=== PATIENT | male | born 2000 | race Caucasian/White ===

== ENCOUNTER 2020-05-24 06:06 | Emergency (ER) | payer OTHER ==
[2020-05-24 06:16] VITALS: BP 129/70; PULSE 64; TEMP 98.2; BMI 20.7
[2020-05-24] MEDS ORDERED: KETOROLAC TROMETHAMINE 60 MG/2 ML VIAL ONE (06:33)
[2020-05-24] MEDS ORDERED: KETOROLAC TROMETHAMINE 60 MG/2 ML VIAL IM ONE (06:33)
--- NOTE | 2020-05-24 06:36 | PDOC ---
History of Present Illness - General Chief Complaint: Toothache Stated Complaint: TOOTH/JAW PAIN Time Seen by Provider: 05/24/20 06:30 History Source: Patient Exam Limitations: No Limitations - History of Present Illness Initial Comments: 05/24/20 06:33 This is a 20-year-old male who comes in complaining of pain in the area of his right upper molars. Patient has an appointment with a dentist for 9 AM this morning. Patient denies any fevers or chills. Patient denies any other complaints. Allergies: as per nursing notes Past Medical History: none Social history: Lives with family. No smoking. No alcohol. No illicit drugs. Surgical history: None General: No fevers or chills, no weakness, no weight loss HEENT: No change in vision. No sore throat,. No ear pain, tooth pain as per HPI CardioVascular: no chest discomfort. No shortness of breath Respiratory:No cough, or wheezing. Gastrointestinal: no nausea, vomiting, diarrhea or constipation, No rectal bleeding Genitourinary: No dysuria, hematuria, or frequency Musculoskeletal: No joint or muscle pain or swelling Neurologic: No headache, vertigo, dizziness or loss of consciousness Psychiatric: nor depression Skin: No rashes or easy bruising Endocrine: no increased thirst or abnormal weight change Allergic: no skin or latex allergy All other systems reviewed and normal GENERAL: The patient is awake, alert, and fully oriented, in no acute distress. HEENT:Head is normal with no signs of trauma. Teeth: There is some tenderness and palpation of the right upper jaw in the area of the wisdom teeth. The wisdom teeth are not in yet and the tenderness is over that area. There is no swelling or erythema or evidence of an abscess or infection at this time. Eyes: Pupils equal, round and reactive to light, Ears, and Throat are normal. Neck is supple. No Lymphadenopathy. EXTREMITIES:atraumatic, Normal range of motion, no edema. NEUROLOGICAL: Normal speech, normal gait. PSYCH: Normal mood, normal affect. SKIN: Warm, Dry, normal turgor, no rashes or lesions noted. Assessment and plan: This is a 20-year-old male with tooth pain that is most likely secondary to a wisdom tooth that is attempting to come in. Patient is seeing a dentist at 9 AM. Patient given Toradol and discharged Past History - Medical History Allergies/Adverse Reactions: Allergies Allergy/AdvReac Type Severity Reaction Status Date / Time No Known Allergies Allergy Unverified 11/07/11 18:01 Home Medications: Ambulatory Orders NK [No Known Home Medication] 05/24/20 COPD: No - Psycho-Social/Smoking History Smoking Status: No Smoking History: Current some day smoker Number of Cigarettes Smoked Daily: 0 Information on smoking cessation initiated: Yes *Physical Exam - Vital Signs Last Vital Signs Temp Pulse Resp BP Pulse Ox 98.2 F 64 16 129/70 100 05/24/20 06:09 05/24/20 06:09 05/24/20 06:09 05/24/20 06:09 05/24/20 06:09 Discharge - Discharge Information Problems reviewed: Yes Clinical Impression/Diagnosis: Dentalgia Condition: Stable Disposition: HOME - Admission No - Follow up/Referral - Patient Discharge Instructions Patient Printed Discharge Instructions: DI for Dental Pain Additional Instructions: You are given a shot of Toradol which lasts about 8 hours if after that you need something more take Aleve 2 tablets twice a day with food do not take on an empty stomach Keep your appointment with your dentist Return to the emergency department immediately with ANY new, persistent or worsening symptoms. Continue any medications as previously prescribed by your physician. You should follow up with your primary doctor as soon as possible regarding today's emergency department visit. . Please make sure your doctor reviews the results of your emergency evaluation. Thank you for coming to the Emergency Department today for your care. It was a pleasure to see you today. Please note that your evaluation is INCOMPLETE until you follow-up with your doctor. - Post Discharge Activity
== END 2020-05-24 06:39 | disposition home or self-care (01) ==
LOC: FER 06:06
PROC: 3E0233Z Introduction of Anti-inflammatory into Muscle, Percutaneous Approach (ICD-10-PCS; principal; 2020-05-24)
DX: K08.89 Other specified disorders of teeth and supporting structures (principal)
CPT/HCPCS: 99284-25